=== PATIENT | female | born 2005 | race Caucasian/White ===

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

== ENCOUNTER 2023-11-09 00:45 | Emergency (ER) | payer SELFPAY ==
[~2023-11-09] VITALS: Ht 167.6 cm; Wt 59.1 kg
[~2023-11-09 00:45] MED LIST changes: +ALDACTONE50 MG PO; +NORCO 325 MG-51 TAB PO
[2023-11-09 00:46] VITALS: TEMP 98.2
[2023-11-09] MEDS ORDERED: Lido/EPI/Tetrac Gel 3 ML SYRINGE TOP ONE (01:00)
[2023-11-09] MEDS ORDERED: ceFAZolin 2 G in Water For Injection,Sterile 20 ML IV ONE (01:00)
[2023-11-09] MEDS ORDERED: droPERidol 2.5 MG/ML 2 ML VIAL IV ONE (01:00)
[2023-11-09] MEDS ORDERED: NS 1,000 ML IV ONE ×3 (01:00→07:45)
[2023-11-09 01:21] LABS: BASO # 0.1 K/mm3 (0.0-0.2); BASO % 0.6 % (0.0-2.0); EOS % 0.1 % (0.0-4.0); GRAN % 63.3 % (42.2-75.2); HEMATOCRIT 38.2 % (35.0-45.0); HEMOGLOBIN 12.8 g/dl (12.0-15.0); LYMPH # 2.2 K/mm3 (1.2-3.4); LYMPH % 28.1 % (20.0-51.0); MEAN CELL VOLUME 93 fl (80.0-95.0); MEAN CORPUSCULAR HEMOGLOBIN 31 pg (26-32); MEAN CORPUSCULAR HGB CONC 34 g/dl (33.0-37.0); MEAN PLATELET VOLUME 9.5 fl (7.4-10.4); MONO # 0.6 K/mm3 (0.1-0.6); MONO % 7.6 % (1.7-9.3); PLATELET COUNT 244 K/mm3 (130-400); RED BLOOD COUNT 4.09 M/mm3 (4.10-5.30); REDCELL DISTRIBUTION WIDTH-CV 12.5 % (11.5-14.5)
[2023-11-09 01:39] LABS: ALBUMIN 4.2 g/dL (3.5-5.0); ANION GAP 20 mmol/L (7-16); AST,SGOT 787 U/L (5-34); CALCIUM 9.7 mg/dL (8.4-10.2); CHLORIDE 101 mEq/L (98-107); GLUCOSE 123 mg/dL (70-99); POTASSIUM 3.1 mEq/L (3.5-4.5); SODIUM 138 mEq/L (136-145); TOTAL PROTEIN 7.5 g/dl (6.2-8.1)
[2023-11-09 01:47] LABS: BILIRUBIN,TOTAL < 0.1 mg/dL (0.2-1.2); BLOOD UREA NITROGEN < 5 mg/dL (7-19); SALICYLATE < 5.0 mg/dL (15.0-30.0)
[2023-11-09 02:18] LABS: ALANINE AMINOTRANSFERASE 31 U/L (0-55); ALKALINE PHOSPHATASE 84 U/L (40-150); CREATININE, serum 1.04 mg/dL (0.57-1.11)
[2023-11-09 02:32] LABS: ALCOHOL(ethanol),MEDICAL 270 mg/dL (0-10); LIPASE 23 U/L (8-78)
[2023-11-09] MEDS ORDERED: Lidocaine 1% w EPI (1:100,000) 20 ML Multi-Dose VIAL SQ ONE (02:45)
[2023-11-09 06:05] LABS: ALBUMIN 3.7 g/dL (3.5-5.0); CALCIUM 8.6 mg/dL (8.4-10.2); CREATININE, serum 0.84 mg/dL (0.57-1.11); POTASSIUM 3.5 mEq/L (3.5-4.5); TOTAL PROTEIN 6.6 g/dl (6.2-8.1)
[2023-11-09 06:14] LABS: BILIRUBIN,TOTAL 0.3 mg/dL (0.2-1.2)
[2023-11-09] MEDS ORDERED: Morphine 4 MG/ML VIAL IV ONE (07:45)
[2023-11-09 11:30] VITALS: BP 127/90; PULSE 57
== END 2023-11-09 11:45 | disposition short-term general hospital (02) ==
LOC: COL.ER 00:45
PROVIDERS: Emergency Medicine
DX: S51.811A Laceration without foreign body of right forearm, initial encounter (principal); F10.129 Alcohol abuse with intoxication, unspecified; Y90.8 Blood alcohol level of 240 mg/100 ml or more; W22.8XXA Striking against or struck by other objects, initial encounter
CPT/HCPCS: J0690; J1790; J2270; J7030